=== PATIENT | male | born 1970 | race Caucasian/White ===

== ENCOUNTER → 2024-01-14 10:36 | Day surgery (SDC) | payer MEDICARE, MEDICAID, SELFPAY ==
[2024-01-14 10:45] VITALS: BMI 29.2
--- NOTE | 2024-01-14 11:03 | XRR_ITS ---
PROCEDURE INFORMATION: Exam: XR Chest Exam date and time: 01/14/2024 11:29 AM Age: 53 years old Clinical indication: Device placement; Picc; Additional info: Post picc insertion, mo placing in gi lab. Should be ready at 1130 TECHNIQUE: Imaging protocol: Radiologic exam of the chest. Views: 1 view. COMPARISON: No relevant prior studies available. FINDINGS: Tubes, catheters and devices: PICC line enters from the right and terminates in the SVC. Lungs: Unremarkable. No consolidation. Pleural spaces: Unremarkable. No pleural effusion. No pneumothorax. Heart/Mediastinum: Unremarkable. No cardiomegaly. Bones/joints: Mild deformity of the left chest wall from prior fractures. XR/XR chest 1V portable [id number] IMPRESSION: No acute findings.
--- NOTE | 2024-01-14 11:30 | PICC.NOTE ---
Single lumen PICC placed to right basilic vein. Referred to vascular access nurse for PICC placement due to need for IV Daptomycin x 6 weeks. Risks and benefits discussed and informed consent obtained from patient. Right arm assessed with right basilic vein measuring 5.0 mm, straight, and apparent best choice for placement. Using sterile technique and MST, right basilic vein accessed x 1 stick. Mid-arm circumference measured 10 cm from right AC 27 cm. Trimmed cath 48 cm with 2 cm external length noted. CXR shows tip to appear to end in the distal SVC, waiting on radiologist to read. Line secured with stat-lock. Insertion site covered with Biopatch and TSM. Report called to [facility]. PICC report and CXR faxed as well. Wound care notified of placement and first dose of Daptomycin given without reaction. Pt to be set up with [facility] in [place] for weekly dressing changes and lab draws.
[2024-01-14] MEDS: SODIUM CHLORIDE 0.9% IV (11:45)
[2024-01-14] MEDS: DAPTOMYCIN IV (11:45)
[2024-01-14 12:10] VITALS: BP 92/56; PULSE 95; RESP 18; TEMP 36.3; O2SAT 97
[2024-01-14 12:11] LABS: Basophils # 0.1 10^3/uL (0.0-0.1); Basophils % 0.9 %; Eosinophils # 0.4 10^3/uL (0.0-0.8); Eosinophils % 3.6 %; Hematocrit 37.1 % (37-53); Lymphocytes # 2.5 10^3/uL (0.8-4.8); Lymphocytes % 20.5 %; Mean Corpuscular Hemoglobin 17.7 pg (27-33); Mean Corpuscular Volume 65.7 fl (82-101); Mean Platelet Volume 9.3 fL (7.4-10.4); Monocytes # 1.8 10^3/uL (0.2-0.9); Monocytes % 14.6 %; Neutrophils # 7.38 10^3/uL (1.8-7.7); Neutrophils % 59.8 %; Nucleated Red Blood Cells % 0.2 %; Platelet Count 539 10^3/cmm (157-399); Red Blood Count 5.65 10^6/uL (3.85-5.65); Red Cell Distribution Width 20.5 % (12.1-15.1); White Blood Count 12.34 10^3/uL (3.29-11.43)
[2024-01-14 12:28] LABS: Alanine Aminotransferase 21 U/L (0-41); Albumin Level 3.9 g/dL (3.5-5.2); Alkaline Phosphatase 95 U/L (40-130); Aspartate Amino Transferase 16 U/L (0-40); Blood Urea Nitrogen 21 mg/dL (6-20); C Reactive Protein 46.7 mg/L (0.0-4.9); Calcium 9.5 mg/dL (8.5-10.5); Carbon Dioxide 24 mmol/L (22-29); Chloride 104 mmol/L (98-107); Creatinine Clr Calc Pharmacy 327.7285; Erythrocyte Sedimentation Rate 89 mm/hr (0-10); Glomerular Filtration Rate 311.3 mL/min (90-130); Glucose 184 mg/dL (65-115); Osmolality Calculated 298 mOsm/kg (285-295); Sodium 140 mmol/L (136-145); Total Bilirubin 0.2 mg/dL (0.15-1.2); Total Protein 7.9 g/dL (6.6-8.7)
[2024-01-14 12:32] LABS: Anion Gap 16.5 (5-19); Potassium 4.5 mmol/L (3.5-5.1)
== END ==
LOC: GILAB 10:39
PROVIDERS: PCP Registered Nurse; Visit Provider Thoracic Surgery (Cardiothoracic Vascular Surgery)
DX: Z45.2 Encounter for adjustment and management of vascular access device (principal)
CPT/HCPCS: 36573; 71045; 80053; 85025; 85651; 86140; 96365; J0878

== ENCOUNTER → 2024-08-05 09:10 | Day surgery (SDC) | payer MEDICARE, MEDICAID, SELFPAY ==
[2024-08-05 09:15] VITALS: BP 107/71; PULSE 106; RESP 18; TEMP 36.4; O2SAT 96
--- NOTE | 2024-08-05 09:27 | XR_ITS ---
WS: [id number] XR chest 1V portable [id number] REASON FOR EXAM: Post PICC insertion FINDINGS: Left arm PICC line placement. The tip of the catheter is in the proximal mid SVC. Discussion of the catheter tip placement with the tomography technologist at 10:05 a.m. Instructed to advance the PICC line the remaining out of body [address] it in the mid SVC. XR/XR chest 1V portable [id number] IMPRESSION: Left arm PICC line as above.
--- NOTE | 2024-08-05 10:00 | PICC.NOTE ---
Single lumen PICC placed to left brachial vein. Referred to vascular access nurse from wound care for PICC placement due to need for IV antibiotics x 6 weeks. Risks and benefits discussed and informed consent obtained from pt. Left arm assessed with left brachial vein measuring 4.0 mm, straight, and apparent best choice for placement. Using sterile technique and MST, left brachial vein accessed x 1 stick. Mid-arm circumference measured 10 cm from left AC 28 cm. Trimmed cath 42 cm with 0 cm external length noted. CXR shows tip in mid SVC, in satisfactory position for use per radiologist. Line secured with stat-lock. Insertion site covered with Biopatch and TSM. Report given to wound care nurse, LEVI Blue. PICC report and CXR faxed to [facility] infusion and [facility] Odalys gutierrez. First dose of IV Vancomycin 2 gm infusing as ordered. Pt to continue infusions at home with [place] supplying drug. Dressing changes and lab draws to be performed at [facility].
[2024-08-05] MEDS: vancomycin 2,000 MG/400 ML PIGGYBACK 200 MG IV (10:22)
[2024-08-05 12:06] LABS: Blood Urea Nitrogen 25 mg/dL (6-20); Calcium 9.3 mg/dL (8.5-10.5); Carbon Dioxide 18 mmol/L (22-29); Chloride 96 mmol/L (98-107); Creatinine Clr Calc Pharmacy 327.7285; Glomerular Filtration Rate 311.3 mL/min (90-130); Glucose 386 mg/dL (65-115); Osmolality Calculated 288 mOsm/kg (285-295); Sodium 129 mmol/L (136-145)
== END ==
PROVIDERS: PCP Registered Nurse; Visit Provider Thoracic Surgery (Cardiothoracic Vascular Surgery)
DX: Z45.2 Encounter for adjustment and management of vascular access device (principal)
CPT/HCPCS: 36573; 36592; 71045; 80048; 96365; J3372